=== PATIENT | female | born 1950 | race Caucasian/White ===

== ENCOUNTER → 2021-04-25 | Outpatient (CLI) | payer MEDICARE ==
[~2021-04-25] MED LIST: ANASTROZOLE1 MG PO; ATORVASTATIN CA40 MG PO; COREG 25MG TAB25 MG PO; HYDRALAZINE HCL25 MG PO; ISOSORBIDE DINI10 MG PO; LASIX40 MG PO; SPIRONOLACTONE25 MG PO
== END ==
LOC: LAB 07:31
DX: E78.00 Pure hypercholesterolemia, unspecified (principal)
CPT/HCPCS: 36415; 80061; 80076

== ENCOUNTER → 2021-11-14 | Outpatient (CLI) | payer MEDICARE | LOC: LAB 07:38 | DX: E78.00 Pure hypercholesterolemia, unspecified (principal) | CPT/HCPCS: 36415; 80061; 80076 ==